=== PATIENT | female | born 1980 | race Caucasian/White ===

== ENCOUNTER 2017-04-21 14:28 | Emergency (ER) | payer BC ==
[2017-04-21 15:11] LABS: ABS Basophils 0 10^3/ul (0-0.2); ABS Eosinophils 0.2 10^3/ul (0-0.6); ABS Lymphocytes 1.9 10^3/ul (1.0-4.8); ABS Monocytes 0.4 10^3/ul (0-0.8); ABS Nucleated RBC 0 10^3/ul; Eosinophil % 2.4 % (0-6); Hematocrit 38 % (35-47); Lymphocyte % 28.7 % (25-47); Mean Corpuscular HGB Conc 34 g/dl (31-36); Mean Corpuscular Hemoglobin 32 pg (27-31); Mean Corpuscular Volume 94 fL (80-97); Mean Platelet Volume 9 um3 (7.4-10.4); Nucleated Red Blood Cells % 0; Platelet Count 176 10^3/ul (150-450); Red Blood Count 4.04 10^6/ul (4.0-5.4); Red Cell Distribution Width 12 % (10.5-15); White Blood Count 6.5 10^3/ul (3.5-10.8)
--- NOTE | 2017-04-21 15:22 | RAD ---
INDICATION: Chest pain COMPARISON: None TECHNIQUE: An AP portable view obtained at 1500 hours is submitted. FINDINGS: Bones/Soft Tissues: There are no acute bony findings. Cardiomediastinal: The cardiomediastinal silhouette is normal. Lungs: There are no infiltrates. Pleura: There are no pleural effusions. Other: None IMPRESSION: NORMAL CHEST.
[2017-04-21 15:34] LABS: EGFR Non-African American 70.5 (>60)
[2017-04-21 18:37] VITALS: BP 122/82
--- NOTE | 2017-04-22 11:55 | ED ---
Tono Ansari Thomas, scribed for Juventino Chin MD on 04/21/17 at 1452 . HPI Chest Pain - HPI Summary HPI Summary: The patient is a 36 year old female complaining of left arm pain that was present this morning when she woke up. The pain radiates to her neck. Two days ago, the patient had chest pain when she was moving boxes. She does admit to increased stress at home recently. - History of Current Complaint Chief Complaint: EDGeneral Time Seen by Provider: 04/21/17 14:48 Hx Obtained From: Patient Hx Last Menstrual Period: 2 weeks ago Onset/Duration: Started Days Ago - 2, Resolved Timing: Intermittent Initial Severity: Moderate Current Severity: None Pain Intensity: 2 Pain Scale Used: 0-10 Numeric Aggravating Factor(s): Exertion Alleviating Factor(s): Spontaneous Resolution Associated Signs and Symptoms: Positive: Chest Pain, Other: - Neck pain, left arm pain - Allergy/Home Medications Allergies/Adverse Reactions: Allergies Allergy/AdvReac Type Severity Reaction Status Date / Time MS Azithromycin Allergy Nausea And Verified 11/26/13 09:43 [From Zithromax] Vomiting MS Bupropion Allergy Itching Verified 11/26/13 09:43 [From Wellbutrin] Home Medications: Home Medications Ibuprofen TAB* [Advil TAB*] 200 mg PO Q6H PRN 04/21/17 [History Confirmed ] Melatonin (NF) 5 mg PO BEDTIME PRN 04/21/17 [History Confirmed 04/21/17] Multivitamins/Minerals TAB* [Theragran/minerals TAB*] 1 tab PO DAILY 04/21/17 [ History Confirmed 04/21/17] PMH/Surg Hx/FS Hx/Imm Hx Endocrine/Hematology History: Denies: Hx Diabetes, Hx Thyroid Disease Cardiovascular History: Denies: Hx Hypertension Respiratory History: Denies: Hx Asthma, Hx Chronic Obstructive Pulmonary Disease (COPD) GI History: Denies: Hx Ulcer Neurological History: Reports: Other Neuro Impairments/Disorders - Hx insomnia - Surgical History Surgery Procedure, Year, and Place: fallopian tube and ovectomy; moles removed; cyst right hand Infectious Disease History: No Infectious Disease History: Denies: Hx Clostridium Difficile, Hx Hepatitis, Hx Human Immunodeficiency Virus (HIV), Hx of Known/Suspected MRSA, Hx Shingles, Hx Tuberculosis, Hx Known/ Suspected VRE, Hx Known/Suspected VRSA, History Other Infectious Disease, Traveled Outside the [place] in Last 30 Days - Family History Known Family History: Positive: Cardiac Disease - Social History Alcohol Use: Daily Substance Use Type: Reports: None Smoking Status (MU): Former Smoker Have You Smoked in the Last Year: No Review of Systems Negative: Fever Positive: Chest Pain Positive: Other - left arm pain, neck pain Positive: Other - Stressed All Other Systems Reviewed And Are Negative: Yes Physical Exam - Summary Physical Exam Summary: VITAL SIGNS: Reviewed. GENERAL: Patient is a well-developed and nourished female who is lying comfortable in the stretcher. Patient is not in any acute respiratory distress. HEAD AND FACE: No signs of trauma. No ecchymosis, hematomas or skull depressions. No sinus tenderness. EYES: PERRLA, EOMI x 2, No injected conjunctiva, no nystagmus. EARS: Hearing grossly intact. Ear canals and tympanic membranes are within normal limits. MOUTH: Oropharynx within normal limits. NECK: Supple, trachea is midline, no adenopathy, no JVD, no carotid bruit, no c- spine tenderness, neck with full ROM. CHEST: Symmetric, no tenderness at palpation LUNGS: Clear to auscultation bilaterally. No wheezing or crackles. CVS: Regular rate and rhythm, S1 and S2 present, no murmurs or gallops appreciated. ABDOMEN: Soft, non-tender. No signs of distention. No rebound no guarding, and no masses palpated. Bowel sounds are normal. EXTREMITIES: FROM in all major joints, no edema, no cyanosis or clubbing. NEURO: Alert and oriented x 3. No acute neurological deficits. Speech is normal and follows commands. SKIN: Dry and warm Triage Information Reviewed: Yes Vital Signs On Initial Exam: Initial Vitals Temp Pulse Resp BP Pulse Ox 99.1 F 80 18 129/91 100 04/21/17 14:31 04/21/17 14:31 04/21/17 14:31 04/21/17 14:31 04/21/17 14:31 Vital Signs Reviewed: Yes Diagnostics - Vital Signs Vital Signs Temp Pulse Resp BP Pulse Ox 04/21/17 14:31 99.1 F 80 18 129/91 100 - Laboratory Result Diagrams: 04/21/17 14:54 03/06/18 14:54 Lab Statement: Any lab studies that have been ordered have been reviewed, and results considered in the medical decision making process. - Radiology CXR Xray Interpretation: No Acute Changes - NORMAL CHEST. Dr. Chin has reviewed this report. Radiology Interpretation Completed By: Radiologist - EKG 14:34 Cardiac Rate: NL EKG Rhythm: Sinus Rhythm - at 61 BPM EKG Interpretation: No ST elevations. Chest Pain Course/Dx - Course Assessment/Plan: The patient is a 36 year old female complaining of left arm pain that was present this morning when she woke up. The pain radiates to her neck. Two days ago, the patient had chest pain when she was moving boxes. She does admit to increased stress at home recently. Test results are without significant abnormalities. CXR shows NORMAL CHEST. EKG shows no ST elevations. The patients second troponin is 0.00, so I believe that the pain is more musculoskeletal. Therefore, the patient will be discharged home with primary care follow up. The patient is hemodynamically stable and alert and oriented x3. - Diagnoses Provider Diagnoses: Atypical chest pain, Left upper limb pain Discharge - Discharge Plan Condition: Stable Disposition: HOME Patient Education Materials: Chest Pain (ED), Arm Pain (ED) Referrals: [facility] [place] [facility]IAN REFERRAL [Outside] - 3 Days Additional Instructions: Follow up with your primary care physician in three days. If you do not have a primary care provider, you can use the [facility] [place] physician referral service to find one and make an appointment. Return to the emergency department for any new or worsening symptoms. The documentation as recorded by the Tono rich Thomas accurately reflects the service I personally performed and the decisions made by , Juventino Chin MD.
== END 2017-04-21 18:41 | disposition home or self-care (01) ==
LOC: ED 14:28
DX: R07.89 Other chest pain (principal); M79.602 Pain in left arm; M54.2 Cervicalgia; Z32.02 Encounter for pregnancy test, result negative; F43.9 Reaction to severe stress, unspecified; Z88.1 Allergy status to other antibiotic agents; Z88.8 Allergy status to other drugs, medicaments and biological substances; Z87.891 Personal history of nicotine dependence
CPT/HCPCS: 36415; 71045; 80053; 82550; 82553; 83605; 83735; 83880; 84443; 84484; 84702; 85025; 93005; 99282